=== PATIENT | female | born 1985 | race Two or more races ===

== ENCOUNTER → 2017-07-26 | Outpatient (CLI) | payer OTHER ==
[2017-07-26 11:35] LABS: BASO % 0.3 % (0.0-1.0); EOS % 0.2 % (0.0-3.0); LARGE UNSTAINED CELL # 0.2 K/mm3 (0.0-0.4); LARGE UNSTAINED CELL % 2.7 % (0.0-4.0); LYMPH # 1.8 K/mm3 (1.5-6.5); LYMPH % 24.7 % (24.0-44.0); MEAN CORPUSCULAR HEMOGLOBIN 30.6 pg (27.0-33.0); MEAN CORPUSCULAR HGB CONC 34.3 g/dl (32.0-36.5); MEAN CORPUSCULAR VOLUME 89.2 fl (80.0-96.0); MONO # 0.4 K/mm3 (0.0-0.8); MONO % 6.3 % (0.0-5.0); NEUTROPHILS # 4.3 K/mm3 (1.8-7.7); NEUTROPHILS % 65.7 % (36.0-66.0); PLATELET COUNT, AUTOMATED 248 k/mm3 (150-450); RED CELL DISTRIBUTION WIDTH 12.3 % (11.5-14.5); WHITE BLOOD COUNT 6.6 K/mm3 (4.0-10.0)
[2017-07-27 11:53] LABS: HBsAg Prenatal NEGATIVE (NEGATIVE)
== END ==
LOC: M LRY 08:39
PROVIDERS: ATTEND Obstetrics & Gynecology
DX: Z34.81 Encounter for supervision of other normal pregnancy, first trimester (principal); Z36 Encounter for antenatal screening of mother

== ENCOUNTER → 2017-09-29 | Outpatient (CLI) | payer OTHER | LOC: M LRY 10:58 | PROVIDERS: ATTEND Advanced Practice Midwife | DX: Z13.79 Encounter for other screening for genetic and chromosomal anomalies (principal) ==

== ENCOUNTER → 2017-10-20 | Outpatient (CLI) | payer OTHER ==
--- NOTE | 2017-10-20 21:31 | REP ---
COMPLETE OB ULTRASOUND: CLINICAL: Anatomical evaluation. FINDINGS: Ultrasound examination demonstrates a single live intrauterine in variable presentation. Placenta is noted posterofundally and grade 0 without evidence for placenta previa or abruption. Amniotic fluid volume is normal. Cervix measures 3.5 cm in length and appears closed. No evidence for nuchal cord. Gestational age by LMP 20 weeks 0 days with estimated date of delivery 03/09/2018. Gestational age by current measurements 20 weeks 4 days with estimated date of delivery 03/05/2018. FHR 133 beats per minute. BPD 4.7 cm = 20 weeks 1 day HC 18.2 cm = 20 weeks 4 days AC 15.1 cm = 20 weeks 2 days FL 3.6 cm = 21 weeks 2 days HL 3.5 cm = 22 weeks 0 days HC/AC ratio 1.21. Estimated weight 370 grams (53rd percentile). Anatomical assessment demonstrates normal cranium, choroid plexus, cavum, cerebellum/posterior fossa, nuchal fold, face, lungs, diaphragm, stomach, cord insertion/three vessel cord, kidney/bladder, spine and extremities. Incomplete evaluation of the heart and cardiac ventricular outflow tracts noted. IMPRESSION: Single live intrauterine in variable presentation demonstrating appropriate interval growth. Limited evaluation of the heart and cardiac ventricular outflow tracts may warrant reevaluation and followup. Remainder of the anatomical assessment is complete and normal. Signed by Garrick Simental MD 10/21/2017 07:29 A
== END ==
LOC: M LRY 13:59
PROVIDERS: ATTEND Advanced Practice Midwife
DX: Z36.2 Encounter for other antenatal screening follow-up (principal)

== ENCOUNTER → 2017-12-01 | Outpatient (CLI) | payer OTHER | LOC: M LRY 13:58 | DX: Z36.2 Encounter for other antenatal screening follow-up (principal) ==

== ENCOUNTER → 2017-12-09 | Outpatient (CLI) | payer OTHER ==
[2017-12-09 19:26] LABS: HEMATOCRIT 40.9 % (36.0-47.0); HEMOGLOBIN 13.7 g/dl (12.0-16.0); MEAN CORPUSCULAR HGB CONC 33.5 g/dl (32.0-36.5); MEAN CORPUSCULAR VOLUME 92.5 fl (80.0-96.0); PLATELET COUNT, AUTOMATED 240 10^3/uL (150-450); RED BLOOD COUNT 4.42 10^6/uL (4.00-5.40); RED CELL DISTRIBUTION WIDTH 13.4 % (11.5-14.5); WHITE BLOOD COUNT 8.6 10^3/uL (4.0-10.0)
[2017-12-09 20:33] LABS: GLUCOSE CHALLENGE TEST 1 HOUR 80 MG/DL (LESS THAN 140)
== END ==
LOC: M LRY 10:38
DX: Z36.89 Encounter for other specified antenatal screening (principal); Z3A.00 Weeks of gestation of pregnancy not specified
CPT/HCPCS: 82950

== ENCOUNTER → 2018-02-07 | Outpatient (REF) | payer OTHER | LOC: M LAB REF 16:55 | DX: Z34.83 Encounter for supervision of other normal pregnancy, third trimester (principal) ==

== ENCOUNTER 2018-03-02 07:16 | Inpatient (IN) | payer OTHER ==
[2018-03-02] MEDS: OXYTOCIN INJ 10 UNITS/ML VIAL (J2590) IM (07:24)
[2018-03-02] MEDS ORDERED: METHYLERGONOVINE MALEATE 0.2 MG TAB PO (08:15)
[2018-03-02] MEDS ORDERED: ONDANSETRON 4MG/2ML VIAL (J2405) IV (08:15)
[2018-03-02] MEDS ORDERED: ACETAMINOPHEN 500 MG TAB PO (08:15)
[2018-03-02] MEDS ORDERED: DOCUSATE SODIUM 100 MG CAP PO (08:15)
[2018-03-02] MEDS ORDERED: IBUPROFEN 800 MG TAB PO (08:15)
[2018-03-02] MEDS ORDERED: DIBUCAINE 1% OINTMENT 30GM TOP (08:15)
[2018-03-02] MEDS: LR 1,000 ML IV (08:40)
[2018-03-02] MEDS: OXYTOCIN DRIP 30 UNITS in APPROPRIATE DILUENT 1 EA IV (08:40)
[2018-03-02] MEDS: PRENATAL VITAMINS CHEWABLE TABLET PO (09:00)
[2018-03-02 09:17] LABS: HEMATOCRIT 35.7 % (36.0-47.0); HEMOGLOBIN 12.6 g/dl (12.0-15.5); MEAN CORPUSCULAR HEMOGLOBIN 31.7 pg (27.0-33.0); MEAN CORPUSCULAR HGB CONC 35.3 g/dl (32.0-36.5); MEAN CORPUSCULAR VOLUME 89.7 fl (80.0-96.0); PLATELET COUNT, AUTOMATED 185 10^3/uL (150-450); RED BLOOD COUNT 3.98 10^6/uL (4.00-5.40); WHITE BLOOD COUNT 15.5 10^3/uL (4.0-10.0)
[2018-03-02] MEDS: MEASLES,MUMPS,RUBELLA VACCINE INJ (MMR-II) (90707) SC (11:20)
[2018-03-02] MEDS: RHOGAM 300 MCG (1500 IU) INJ (J2790) IM (11:20)
[2018-03-02] MEDS: LIDOCAINE 1% MDV INJ 50 ML VIAL SC (12:00)
[2018-03-03] MEDS: PRENATAL VITAMINS CHEWABLE TABLET PO (08:54)
== END 2018-03-03 18:00 | disposition home or self-care (01) | DRG 775 ==
LOC: M LDI 07:16 → M OBS 11:00
PROVIDERS: Specialist
PROC: 10E0XZZ Delivery of Products of Conception, External Approach (ICD-10-PCS; principal; 2018-03-02)
PROC: 0KQM0ZZ Repair Perineum Muscle, Open Approach (ICD-10-PCS; 2018-03-02)
DX: O70.1 Second degree perineal laceration during delivery (principal); Z37.0 Single live birth; Z3A.39 39 weeks gestation of pregnancy; O69.82X0 Labor and delivery complicated by other cord entanglement, without compression, not applicable or unspecified